=== PATIENT | female | born 1995 | race Caucasian/White ===

== ENCOUNTER 2021-02-18 16:38 | Inpatient (IN) | payer BC ==
[~2021-02-18 16:38] MED LIST: Acetaminophen 325 MG Tab PO PRN; Carboprost Tromethamine 250 MCG/1 ML Amp IM PRN; Lidocaine 1% 30 ML SDV INJECT PRN; Methylergonovine 0.2 MG/1 ML Amp IM PRN; Misoprostol 25 MCG (1/4 of 100 MCG) Tab VAG PRN; Misoprostol 400 MCG (4 X 100 MCG TAB) RECTAL PRN; Misoprostol 50 MCG (1/2 of 100 MCG) Tab VAG PRN; Ondansetron 4 MG/2 ML SDV IVPUSH PRN; Sodium Chloride 0.9% 10 ML Syringe FLUSH PRN; Tranexamic Acid 1,000 MG in Sodium Chloride 0.9% 100 ML IV PRN; fentaNYL 100 MCG/2 ML SDV IVPUSH PRN
[2021-02-18] MEDS ORDERED: Oxytocin/Normal Saline 30 UNIT/500 ML BAG IV SCH ×2 (16:45)
[2021-02-18] MEDS: Lactated Ringers 1,000 ML IV ONE (22:41)
[2021-02-19] MEDS ORDERED: Benzocaine/Cetylpyridinium/Menthol Lozenge MUCMEM STA (01:22)
[2021-02-19] MEDS: Lactated Ringers 1,000 ML IV ONE (05:19)
[2021-02-19] MEDS: Lactated Ringers 1,000 ML IV SCH ×2 (05:44→06:34)
[2021-02-19] MEDS ORDERED: EPINEPHrine 1 MG/1 ML Amp ONE ×2 (06:05)
[2021-02-19] MEDS ORDERED: fentaNYL 100 MCG/2 ML SDV ONE (06:05)
[2021-02-19] MEDS ORDERED: fentaNYL 100 MCG/2 ML SDV ITHECAL ONE (06:05)
--- NOTE | 2021-02-19 06:51 | PCM.PRNOTE ---
- Free Text/Narrative Note: Requested to provide analgesia to full term patient in severe pain. Upon entering the room, patient is sitting on edge of bed complaining of severe abdominal/pelvic pain and discomfort. Procedure was discussed with patient including adverse outcomes and expectations. Pt consented to analgesia, SAB/IT. Pt placed into a proper sitting position. Landmarks for SAB/IT were identified and marked. Hands were washed and appropriate PPE was applied. Back was prepped with betadine x3. A sterile, transparent, fenestrated drape was applied. Excess betadine was removed. Using 3 mL of a 1% lidocaine solution, a skin wheel was placed at the L2/L3 interspace. A 24 ga (4 inch) Pencan spinal needle was inserted until positive for CSF. Negative for heme or paresthesias. Injected fentanyl 30 mcg, sufentanil 25 mcg, and 7.5 mg of a 0.75% bupivacaine solution with an epi wash. Pt was placed left lateral tilt position for approximately 20 minutes. There were zero complications or adverse outcomes. Will continue to monitor. Procedure Date & Time: 02-19-21 [id number]
[2021-02-19] MEDS ORDERED: Acetaminophen 325 MG Tab PO PRN (08:25)
[2021-02-19] MEDS ORDERED: Docusate Sodium 100 MG Cap PO PRN (08:25)
[2021-02-19] MEDS ORDERED: PRAMOXINE HCL TOP PRN (08:25)
[2021-02-19] MEDS ORDERED: Ibuprofen 800 MG Tab PO PRN (08:25)
[2021-02-19] MEDS ORDERED: Prenatal Multivitamin with Calcium/Folic Acid/Iron Tab PO SCH (09:00)
[2021-02-19] MEDS ORDERED: Sodium Chloride 0.9% 10 ML Syringe FLUSH PRN (12:10)
[2021-02-19] MEDS ORDERED: Misoprostol 400 MCG (4 X 100 MCG TAB) RECTAL PRN (12:10)
[2021-02-19] MEDS ORDERED: Benzocaine/Menthol 20%-0.5% Spray 56 GM Canister TOP PRN (12:10)
[2021-02-19] MEDS ORDERED: Carboprost Tromethamine 250 MCG/1 ML Amp IM PRN (12:10)
[2021-02-19] MEDS ORDERED: Simethicone 80 MG Tab.Chew PO PRN (12:10)
[2021-02-19] MEDS ORDERED: Zolpidem 5 MG Tab PO PRN (12:10)
[2021-02-19] MEDS ORDERED: Tranexamic Acid 1,000 MG in Sodium Chloride 0.9% 100 ML IV PRN (12:10)
[2021-02-19] MEDS ORDERED: Oxytocin 10 Units/1 ML SDV IM PRN (12:10)
[2021-02-19] MEDS ORDERED: Calcium Carbonate 500 MG Tab.Chew PO PRN (12:12)
--- NOTE | 2021-02-19 12:12 | PN ---
DATE: 02/19/2021 SUBJECTIVE: A 26-year-old 3, para 2, currently inducing labor because of mildly symptomatic COVID and gestational thrombocytopenia at 37 plus weeks gestation. The patient has done well through the night with a couple of doses of Cytotec and was [place] every 2 minutes, 4 cm dilated, and 80% effaced, so nurse called for intrathecal anesthesia. Has had some delay with that because her contractions spaced out to every 6 minutes and once he found out that our plan was to place the intrathecal, perform artificial rupture, and start Pitocin, he was then okay with placing it, so the patient is now resting comfortably. OBJECTIVE: Vital Signs: Have remained stable last set. Temperature was 97.7, blood pressure 113/63, respiratory rate of 18, and she was afebrile. Pelvic: Cervix first check by medical student and some clear fluid returned, and we felt the patient was likely spontaneously ruptured on her own. I then followed with a secondary check and initially, I did not feel much in the way of a bag over the baby's head, but upon further manipulation of the cervix, I was able to get a bulging bag essentially to develop and that was ruptured with amnio hook and return of good clear fluid and a small amount of bloody tinge. Her cervix was 5 cm, dilated, 80% effaced, -1 station, and vertex. ASSESSMENT: 1. 37-3/7 weeks. 2. 3, para 2-0-0-2. 3. Mildly symptomatic for COVID. 4. Gestational thrombocytopenia, trending downward. 5. Anemia of . 6. Anxiety. PLAN: Continue active labor management. If artificial rupture does not bring her contractions back and stronger within the next 15 to 20 minutes, we will initiate Pitocin at 2, going up by 2s and be anticipating vaginal delivery later on this morning. The patient's questions were answered. [facility] /[id number] SILVIANO
[2021-02-19] MEDS: Prenatal Multivitamin with Calcium/Folic Acid/Iron Tab PO SCH (13:00)
[2021-02-19] MEDS: Docusate Sodium 100 MG Cap PO PRN (15:10)
[2021-02-19] MEDS: Acetaminophen 325 MG Tab PO PRN (19:11)
[2021-02-19] MEDS: Ibuprofen 800 MG Tab PO PRN (20:00)
[2021-02-20] MEDS: Ibuprofen 800 MG Tab PO PRN (03:13)
[2021-02-20] MEDS: Docusate Sodium 100 MG Cap PO PRN ×2 (03:13→08:24)
[2021-02-20] MEDS: Acetaminophen 325 MG Tab PO PRN ×2 (03:14→08:24)
--- NOTE | 2021-02-20 07:39 | DEL ---
DATE: 02/19/2021 PREOPERATIVE DIAGNOSES: 1. 3, para 2-0-0-2, with an intrauterine at 37 weeks 3 days based on a last menstrual period of 06/02/2020 and confirmed with a 21-week 3-day ultrasound on 10/30/2020. Estimated date of delivery of 03/09/2021. 2. A positive, antibody screen negative, and rubella immune. 3. Gestational thrombocytopenia with platelets on admission of 117, most recent platelet count 112. On 02/06/2021, her platelet count was 142. 4. History of benign gestational thrombocytopenia in prior , 2016. 5. Maternal coronavirus disease positivity, testing positive on 02/18/2021 and exhibiting mild symptoms of primarily nasal congestion and other respiratory symptoms. 6. Anemia of , hemoglobin on admission 11.4. It was noted on 10/29/2020. 7. Second-trimester bleeding noted on 09/11/2020 at 14 weeks, post intercourse. 8. Anxiety, not currently requiring pharmacologic management. 9. Group B Streptococcus negative. POSTOPERATIVE DIAGNOSES: 1. 3, para 3-0-0-3, with an intrauterine at 37 weeks 3 days based on last menstrual period and confirmed with a 21-week 3-day ultrasound. 2. A positive, rubella immune. 3. Gestational thrombocytopenia in , last platelet count 112. 4. Maternal coronavirus disease positivity with mild symptoms. 5. Anemia of , hemoglobin on admission 11.4. 6. Second-trimester bleeding post intercourse. 7. Anxiety, currently not requiring pharmacologic management. 8. Induction of labor at approximately 2045 hours on 02/18/2021, Cytotec x2. 9. Intrathecal at 6:20 on 02/19/2021. 10.Group B Streptococcus negative. 11.Nuchal cord x1, reduced with infant maneuver. PROCEDURES PERFORMED: Induction of labor and artificial rupture of membranes by Dr. Sousa. Intrathecal x1 by Anesthesia. ANESTHESIA/ANALGESIA: Intrathecal x1 at 6:20. ESTIMATED BLOOD LOSS: 250 mL. FINDINGS: A viable female with scores of 8 and 8 at 1 and 5 minutes respectively, weighing 3033 g, 6 pounds 11 ounces. SUMMARY OF EVENTS: On this date at 7:56, this 3, now para 3-0-0-3, GBS negative, delivered a viable female weighing 3033 g with scores of 8 and 8 at 1 and 5 minutes respectively. Delivery was induced yesterday evening around 2045 hours with Cytotec x2 due to maternal COVID positivity after diagnosis on 02/18/2021 with mild maternal upper respiratory- type symptoms. Delivery was spontaneous vaginal following artificial rupture of membranes at 6:41 to a sterile field under intrathecal anesthesia x1. Position was ALDO with nuchal cord x1 reduced with infant maneuver. The was stimulated aggressively and bulb suctioned to respiratory effort, then placed on the mother's abdomen and chest. Cord clamping was delayed approximately 3 minutes, then clamped and cut by the father of the baby. No complications with delivery. Placenta with a 3-vessel cord was delivered spontaneously, intact, and completely. Cord blood was collected. The perineum had a mild first-degree laceration that achieved hemostasis with pressure but did require 1 suture of repair to reapproximate. A small perineal tag on the left side was also noted and tacked back down with a second suture. Hemostasis was achieved again with pressure. Bilateral periurethral abrasions, nonbleeding and not repaired were also noted. Pitocin 30 units was administered IV after placental delivery. Estimated blood loss was less than 250 mL. Infant and mother are recovering well in the patient's room with the father of the baby at the bedside. Mother is planning to breastfeed. [facility] /[id number] MTDD
[2021-02-20] MEDS ORDERED: Aspirin 81 MG Tab.EC PO SCH (08:00)
[2021-02-20] MEDS ORDERED: Ferrous Sulfate 325 MG Tab PO SCH (08:00)
[2021-02-20] MEDS: Prenatal Multivitamin with Calcium/Folic Acid/Iron Tab PO SCH (08:23)
[2021-02-20 12:10] VITALS: BP 113/62; PULSE 68
--- NOTE | 2021-02-20 17:09 | DISCH ---
REASON FOR ADMISSION: Induction of labor at 37 weeks 3 days for maternal COVID positivity with mild symptoms and thrombocytopenia affecting . OBSTETRIC HISTORY: 1. 09/13/2014, 39 weeks 1 day, delivered a term female, 7 pounds 2.5 ounces via spontaneous vaginal delivery. 2. 06/25/2016, 38 weeks 3 days, delivered a term male at 6 pounds 11.4 ounces via spontaneous vaginal delivery. DELIVERY: 1. Sex: Female. 2. weight: 3033 g, 6 pounds 11 ounces. 3. Score: 8 and 8 at one and five minutes respectively. PROCEDURES: Induction of labor and artificial rupture of membranes. PROBLEM LIST: 1. 3, now para 3-0-0-3 with intrauterine at 37 weeks 3 days based on last menstrual period of 06/02/2020, confirmed with 21 weeks 3 days ultrasound on 10/30/2020. Estimated date of delivery 03/09/2021. 2. ABO/Rh A positive, antibody screen negative, rubella immune. 3. Gestational thrombocytopenia affecting with platelets on admission of 117 and downtrending. 4. History of benign gestational thrombocytopenia in prior in 2015. 5. Maternal coronavirus disease positivity, testing positive on 02/18/2021, exhibiting mild symptoms. 6. Anemia of with hemoglobin on admission 11.4. Anemia noted on 10/29/2020. 7. Second trimester bleeding noted on 09/11/2020, at 14 weeks post intercourse. 8. Anxiety, not currently requiring pharmacologic management. 9. Group B Streptococcus negative. FINAL DIAGNOSES: 1. Mother is now 3, para 3-0-0-3, status post spontaneous vaginal delivery with Cytotec induction x2 and artificial rupture of membranes. 2. ABO/Rh A positive, antibody screen negative, rubella immune. 3. Gestational thrombocytopenia affecting with platelets on admission of 117 and downtrending. 4. History of benign gestational thrombocytopenia in prior in 2015. 5. Maternal coronavirus disease positivity, testing positive on 02/18/2021, exhibiting mild symptoms. 6. Anemia of with hemoglobin on admission 11.4. Anemia noted on 10/29/2020. 7. Second trimester bleeding noted on 09/11/2020, at 14 weeks post intercourse. 8. Anxiety, not currently requiring pharmacologic management. 9. Group B Streptococcus negative. 10.Nuchal cord x1 reduced with infant maneuver. CONSULTS AND REFERRALS: Anesthesia. SUBJECTIVE: Mother has no complaints this morning. She denies any nausea, fevers, lower extremity pain, swelling. She is experiencing moderate upper respiratory viral symptoms of sinus congestion. She is tolerating p.o. Ambulating and voiding as appropriate. She denies any excessive vaginal bleeding relating to similar period-type amount. At this time, her pain is well controlled. The patient is currently infant and feels her milk has not yet come in. OBJECTIVE: Current Vital Signs: Temperature 97.8 degrees Fahrenheit, pulse 69, blood pressure 113/64, respiratory rate 18 breaths per minute. LABORATORY DATA: Most recent hematology - white blood cell count 10.0, RBCs 3.64, hemoglobin 11.3, hematocrit 33.9, MCV 93.1, MCH 31.0, MCHC 33.3, platelet count 129. PHYSICAL EXAMINATION: General: Alert, in no acute distress with an appropriate affect and mood. Appears generally well. Respiratory: Clear to auscultation bilaterally with no adventitial breath sounds. Cardiovascular: Regular rate and rhythm with no murmurs appreciated. Abdomen: Soft, appropriate, tender. Fundus firm and 1 fingerbreadth below the umbilicus. Extremities: Nontender. Scant bilateral lower extremity edema with negative Homans' sign. ASSESSMENT AND PLAN: Aria Bocanegra is a G3, now para 3-0-0-3, status post spontaneous vaginal delivery of a viable female infant at 37 weeks 3 days gestation. The patient is recovering appropriately and meeting milestones. well-being is as appropriate and feeding ad slime. Disposition will be to home with the baby and father of baby with direction to advance activity and oral intake as tolerated with followup in the clinic tomorrow for weight check of the baby. Discharge home will be day #1. Contraception will be discussed at 6-week visit. PRELIMINARY DISCHARGE MEDICATIONS: vitamin. Please see the after- visit summary for final and accurate medication list. HOSPITAL COURSE: The patient presented for induction of labor at 37 weeks 3 days based on last menstrual period of 06/02/2020, confirmed with a 21 weeks 3 days ultrasound on 10/30/2020 with estimated date of delivery 03/09/2021 with medical indication for induction due to her COVID positivity noted 02/18/2021 and currently exhibiting mild symptoms. The patient also had thrombocytopenia antepartum and downtrending. Delivery occurred without significant issue. Recovery was uncomplicated and both mother and appeared to be recovering well. The patient was discharged home in good condition. DISCHARGE DISPOSITION: Home with and father of baby. FOLLOWUP APPOINTMENTS: 6-week visit with Dr. Ambika Thapa. This note is being scribed on behalf of Dr. Ambika Thapa. [facility] /[id number]
== END 2021-02-20 12:05 | disposition home or self-care (01) | DRG 560 ==
LOC: DL.OBCHECK 16:38 → DL.OB 17:19 → OBSVTOIN 02-19 08:21
PROVIDERS: ADMIT Family Medicine; ATTEND Family Medicine
PROC: 8E0ZXY6 Isolation (ICD-10-PCS; 2021-02-18)
PROC: 10E0XZZ Delivery of Products of Conception, External Approach (ICD-10-PCS; principal; 2021-02-19)
PROC: 10907ZC Drainage of Amniotic Fluid, Therapeutic from Products of Conception, Via Natural or Artificial Opening (ICD-10-PCS; 2021-02-19)
PROC: 3E0P7VZ Introduction of Hormone into Female Reproductive, Via Natural or Artificial Opening (ICD-10-PCS; 2021-02-19)
PROC: 3E0R3BZ Introduction of Anesthetic Agent into Spinal Canal, Percutaneous Approach (ICD-10-PCS; 2021-02-19)
DX: O99.013 Anemia complicating pregnancy, third trimester (principal); D64.9 Anemia, unspecified; Z37.0 Single live birth; O98.52 Other viral diseases complicating childbirth; U07.1 COVID-19; O99.344 Other mental disorders complicating childbirth; F41.9 Anxiety disorder, unspecified; O99.52 Diseases of the respiratory system complicating childbirth; J01.40 Acute pansinusitis, unspecified; O99.12 Other diseases of the blood and blood-forming organs and certain disorders involving the immune mechanism complicating childbirth; D69.6 Thrombocytopenia, unspecified; Z3A.37 37 weeks gestation of pregnancy; O69.81X0 Labor and delivery complicated by cord around neck, without compression, not applicable or unspecified
CPT/HCPCS: 01967; 36415; 59025; 85027; A9270-GY; J0171; J2405; J2590; J3010; J7120

== ENCOUNTER 2023-01-07 07:41 | Emergency (ER) | payer BC, MEDICAID ==
[2023-01-07 07:59] VITALS: BP 118/85; PULSE 84
[2023-01-07] MEDS ORDERED: HYDROmorphone 1 MG/ML Syringe IVPUSH ONE (08:08)
[2023-01-07] MEDS ORDERED: Ondansetron 4 MG/2 ML SDV IVPUSH ONE (08:08)
[2023-01-07] MEDS ORDERED: Iopamidol 612 MG/ML 100 ML Bottle IVPUSH ONE (08:29)
[2023-01-07 09:23] LABS: ANION GAP 12.8 mEq/L (7-13); CHLORIDE,CL 103 mmol/L (98-107); SODIUM,NA 139 mmol/L (136-145)
[2023-01-07 09:30] LABS: ESTIMATED GFR 115 mL/min (>=60)
== END 2023-01-07 10:28 | disposition home or self-care (01) ==
LOC: DL.ED 07:41
DX: R10.31 Right lower quadrant pain (principal); R10.2 Pelvic and perineal pain; Z88.1 Allergy status to other antibiotic agents; Z88.2 Allergy status to sulfonamides; Z88.0 Allergy status to penicillin; Z86.16 Personal history of COVID-19
CPT/HCPCS: 36415; 74177; 80053; 81003; 81025; 83605; 85025; 86140; 96374; 96375; 99284; 99284-25; J1170; J2405; Q9967